=== PATIENT | female | born 1965 | race Caucasian/White ===

== ENCOUNTER 2023-04-28 14:15 | Inpatient (IN) | payer BC ==
[~2023-04-28] VITALS: Ht 162.6 cm; Wt 91.2 kg
[2023-04-28 14:17] VITALS: BP 133/72; PULSE 132; RESP 18; TEMP 98.2; O2SAT 99
[2023-04-28] MEDS: NACL 0.9% 1,000 ML IV ONE ×2 (15:47→18:05)
[2023-04-28] MEDS: METOPROLOL 5 MG/5 ML VIAL IV ONE (15:58)
[2023-04-28] MEDS: LORazepam 2 MG/ML VIAL IVP ONE (16:20)
[2023-04-28 16:24] LABS: BASOPHILS % (AUTO) 0.5 % (0.0-2.0); EOSINOPHILS % (AUTO) 0.5 % (0.0-4.0); HEMATOCRIT 40.7 % (36-48); HEMOGLOBIN 14.1 g/dL (12.0-16.0); LYMPHOCYTES # (AUTO) 1.1 K/uL (2.5-16.5); LYMPHOCYTES % (AUTO) 17.5 % (20.5-51.1); MEAN CORPUSCULAR HEMOGLOBIN 35 pg (27-31); MEAN CORPUSCULAR HGB CONC 35 g/dL (33-37); MEAN CORPUSCULAR VOLUME 99.6 fL (80-94); MONOCYTES # (AUTO) 0.5 K/uL (0.8-1.0); MONOCYTES % (AUTO) 7.9 % (1.7-9.3); NEUTROPHILS # (AUTO) 4.4 K/uL (1.8-7.7); NEUTROPHILS % (AUTO) 73.6 % (42.2-75.2); PLATELET COUNT (AUTO) 68 K/uL (140-450); RED BLOOD CELL COUNT(AUTO) 4.08 MIL/uL (4.20-5.40)
[2023-04-28 16:41] LABS: ANION GAP 11.9 (8-16); CALCIUM 7.3 mg/dL (8.5-10.1); CARBON DIOXIDE 32.2 mmol/L (21-32); CREATININE 0.7 mg/dL (0.6-1.3); POTASSIUM 4.1 mmol/L (3.5-5.1)
[2023-04-28 16:52] LABS: ALANINE AMINOTRANSFERASE 49 U/L (12-78); ALBUMIN 2.8 g/dL (3.4-5.0); ALKALINE PHOSPHATASE 209 U/L (50-136); ASPARTATE AMINOTRANSFERASE 139 U/L (15-37); BILIRUBIN,DIRECT 1.1 mg/dL (0.0-0.3); TOTAL BILIRUBIN 3.5 mg/dL (0.0-1.0); TOTAL PROTEIN, SERUM 6.3 g/dL (6.4-8.2)
[2023-04-28] MEDS ORDERED: METOPROLOL 5 MG/5 ML VIAL IVP ONE (17:20)
[2023-04-28] MEDS ORDERED: METOPROLOL 5 MG/5 ML VIAL ONE (17:22)
[2023-04-28] MEDS ORDERED: LORazepam 1 MG TAB PO ONE (17:25)
[2023-04-28 17:56] LABS: THYROID STIMULATING HORMONE 2.24 uIU/mL (0.34-3.74)
[2023-04-28] MEDS: METOPROLOL 25 MG TAB PO ONE ×2 (18:06→18:29)
[2023-04-28] MEDS: METOPROLOL 5 MG/5 ML VIAL IVP ONE (18:33)
[2023-04-28] MEDS: AMIODARONE 150 MG in DEXTROSE 5% 100 ML IV ONE (19:00)
[2023-04-28] MEDS ORDERED: AMIODARONE 150 MG/3 ML VIAL IV ONE ×2 (20:00→20:44)
[2023-04-28] MEDS: AMIODARONE 450 MG in DEXTROSE 5% 250 ML IV ONE (21:00)
[2023-04-28] MEDS: AMIODARONE 150 MG/3 ML VIAL IV ONE (21:29)
[2023-04-29] VITALS (10 sets, daily range): BP systolic 90–121; BP diastolic 50–67; PULSE 47–75; RESP 18–20; TEMP 97.8–98.1; O2SAT 93–99
[2023-04-29] MEDS ORDERED: HYDROcodone/APAP 5/325 MG 1 TAB TAB PO PRN ×2 (00:05→16:05)
[2023-04-29] MEDS: NACL 0.9% 1,000 ML IV SCH (00:05)
[2023-04-29] MEDS ORDERED: MORPHINE SULFATE 2 MG/ML SYR IVP PRN (00:05)
[2023-04-29] MEDS ORDERED: ACETAMINOPHEN 325 MG TAB PO PRN (00:05)
[2023-04-29] MEDS ORDERED: MAG SULF 2000 MG/WATER PREMIX 50 ML IV PRN (00:05)
[2023-04-29] MEDS ORDERED: MELATONIN 3 MG TAB PO PRN (00:05)
[2023-04-29] MEDS ORDERED: ONDANSETRON 4 MG/2 ML VIAL IVP PRN (00:05)
[2023-04-29] MEDS ORDERED: LORazepam 2 MG/ML VIAL IVP PRN (00:10)
[2023-04-29 00:46] LABS: FREE T4 (FREE THYROXINE) 0.93 ng/dL (0.76-1.46); THYROID STIMULATING HORMONE 2.1 uIU/mL (0.34-3.74)
[2023-04-29] MEDS ORDERED: ARIP5TAB8 PO (02:46)
[2023-04-29] MEDS ORDERED: METO25TE2 PO (02:46)
[2023-04-29] MEDS ORDERED: ESCI5TAB PO (02:47)
[2023-04-29] MEDS: THIAMINE 200 MG/2 ML VIAL IM SCH (09:44)
[2023-04-29 10:40] LABS: BASOPHILS % (AUTO) 0.4 % (0.0-2.0); EOSINOPHILS # (AUTO) 0.1 K/uL (0-0.4); EOSINOPHILS % (AUTO) 3.6 % (0.0-4.0); HEMATOCRIT 35.1 % (36-48); LYMPHOCYTES # (AUTO) 1.1 K/uL (2.5-16.5); LYMPHOCYTES % (AUTO) 27.5 % (20.5-51.1); MEAN CORPUSCULAR HEMOGLOBIN 35 pg (27-31); MEAN CORPUSCULAR HGB CONC 34 g/dL (33-37); MEAN CORPUSCULAR VOLUME 102.4 fL (80-94); MONOCYTES # (AUTO) 0.4 K/uL (0.8-1.0); MONOCYTES % (AUTO) 9.4 % (1.7-9.3); NEUTROPHILS # (AUTO) 2.4 K/uL (1.8-7.7); NEUTROPHILS % (AUTO) 59.1 % (42.2-75.2); RED BLOOD CELL COUNT(AUTO) 3.43 MIL/uL (4.20-5.40); RED CELL DISTRIBUTION WIDTH 22.8 % (11.6-13.7); WHITE BLOOD COUNT (AUTO) 4.1 K/uL (4.8-10.8)
[2023-04-29 10:55] LABS: ALBUMIN 2.3 g/dL (3.4-5.0); ANION GAP 11.6 (8-16); CALCIUM 6.9 mg/dL (8.5-10.1); CARBON DIOXIDE 29.6 mmol/L (21-32); CREATININE 0.7 mg/dL (0.6-1.3); POTASSIUM 3.2 mmol/L (3.5-5.1); TOTAL BILIRUBIN 3.2 mg/dL (0.0-1.0); TOTAL PROTEIN, SERUM 5.1 g/dL (6.4-8.2)
[2023-04-29 12:37] LABS: PLATELET COUNT (AUTO) 43 K/uL (140-450)
[2023-04-29] MEDS: AMIODARONE 200 MG TAB PO SCH (13:11)
[2023-04-29] MEDS: KCL 20 MEQ IN 100 mL PREMIX 200 ML IV PRN (16:16)
[2023-04-29] MEDS: LORazepam 2 MG/ML VIAL IVP PRN (17:18)
[2023-04-29] MEDS: LORazepam 1 MG TAB PO SCH (21:19)
[2023-04-30] VITALS: BP 118/77; PULSE 62; PULSE 67; RESP 18; TEMP 98.3; O2SAT 97
[2023-04-30 04:00] VITALS: BP 100/58; PULSE 59; PULSE 66; RESP 18; TEMP 97.7; O2SAT 97
[2023-04-30 06:53] LABS: BASOPHILS % (AUTO) 0.4 % (0.0-2.0); EOSINOPHILS # (AUTO) 0.1 K/uL (0-0.4); EOSINOPHILS % (AUTO) 3.7 % (0.0-4.0); HEMATOCRIT 32.5 % (36-48); HEMOGLOBIN 11.4 g/dL (12.0-16.0); LYMPHOCYTES # (AUTO) 1.1 K/uL (2.5-16.5); LYMPHOCYTES % (AUTO) 34.7 % (20.5-51.1); MEAN CORPUSCULAR HEMOGLOBIN 36 pg (27-31); MEAN CORPUSCULAR HGB CONC 35 g/dL (33-37); MEAN CORPUSCULAR VOLUME 101.4 fL (80-94); MONOCYTES # (AUTO) 0.3 K/uL (0.8-1.0); MONOCYTES % (AUTO) 9.2 % (1.7-9.3); NEUTROPHILS # (AUTO) 1.7 K/uL (1.8-7.7); WHITE BLOOD COUNT (AUTO) 3.3 K/uL (4.8-10.8)
[2023-04-30 07:06] LABS: PLATELET COUNT (AUTO) 41 K/uL (140-450)
[2023-04-30 07:31] LABS: ALBUMIN 2.2 g/dL (3.4-5.0); ANION GAP 11.8 (8-16); CALCIUM 7.3 mg/dL (8.5-10.1); CARBON DIOXIDE 28.1 mmol/L (21-32); CREATININE 0.6 mg/dL (0.6-1.3); MAGNESIUM 1.4 mg/dL (1.8-2.4); PHOSPHORUS 3.3 mg/dL (2.5-4.9); TOTAL BILIRUBIN 1.6 mg/dL (0.0-1.0); TOTAL PROTEIN, SERUM 5.2 g/dL (6.4-8.2)
[2023-04-30 07:33] LABS: POTASSIUM 2.9 mmol/L (3.5-5.1)
[2023-04-30 08:00] VITALS: PULSE 60
[2023-04-30] MEDS: ESCITALOPRAM 5 MG PO SCH (09:00)
[2023-04-30] MEDS ORDERED: ESCITALOPRAM 20 MG TAB PO SCH (09:00)
[2023-04-30] MEDS ORDERED: METOPROLOL SUCCINATE 50 MG TABER PO SCH (09:00)
[2023-04-30] MEDS: MULTIVITAMIN 1 TAB PO SCH (11:34)
[2023-04-30] MEDS: FOLIC ACID 1 MG TAB PO SCH (11:35)
[2023-04-30] MEDS: ARIPiprazole 10 MG TAB PO SCH (11:36)
[2023-04-30] MEDS: PANTOPRAZOLE 40 MG TABEC PO SCH (11:38)
[2023-04-30] MEDS: VANCOMYCIN HCL 25 MG/ML SOLN PO SCH (12:00)
[2023-04-30] MEDS ORDERED: VANCOMYCIN 500 MG VIAL PO SCH (12:00)
[2023-04-30] MEDS: POLYETHYLENE GLYCOL 17 GM/PKT PO PRN (12:44)
[2023-04-30 20:00] VITALS: PULSE 63
[2023-04-30 21:48] VITALS: PULSE 66
[2023-05-01 00:02] VITALS: PULSE 65
[2023-05-01 03:33] LABS: AMPHETAMINE, URINE NEGATIVE ng/ml (NEG <=1000); BARBITURATE, URINE NEGATIVE ng/ml (NEG <=200); BENZODIAZEPINE, URINE POSITIVE ng/mL (NEG <=200); CANNABINOID, URINE NEGATIVE ng/mL (NEG <=50); COCAINE, URINE NEGATIVE ng/mL (NEG <=300); OPIATE, URINE NEGATIVE ng/mL (NEG <=2000); PHENCYCLIDINE SCREEN,URINE NEGATIVE ng/mL (NEG <=25)
[2023-05-01 04:02] VITALS: PULSE 62
[2023-05-01 07:03] LABS: BASOPHILS % (AUTO) 0.4 % (0.0-2.0); EOSINOPHILS # (AUTO) 0.1 K/uL (0-0.4); EOSINOPHILS % (AUTO) 2.7 % (0.0-4.0); HEMATOCRIT 33.5 % (36-48); HEMOGLOBIN 11.8 g/dL (12.0-16.0); LYMPHOCYTES # (AUTO) 1.4 K/uL (2.5-16.5); LYMPHOCYTES % (AUTO) 31.6 % (20.5-51.1); MEAN CORPUSCULAR HEMOGLOBIN 36 pg (27-31); MEAN CORPUSCULAR HGB CONC 35 g/dL (33-37); MEAN CORPUSCULAR VOLUME 101.3 fL (80-94); MONOCYTES # (AUTO) 0.4 K/uL (0.8-1.0); MONOCYTES % (AUTO) 8.9 % (1.7-9.3); NEUTROPHILS # (AUTO) 2.6 K/uL (1.8-7.7); NEUTROPHILS % (AUTO) 56.4 % (42.2-75.2); PLATELET COUNT (AUTO) 54 K/uL (140-450); RED BLOOD CELL COUNT(AUTO) 3.31 MIL/uL (4.20-5.40); RED CELL DISTRIBUTION WIDTH 23.8 % (11.6-13.7); WHITE BLOOD COUNT (AUTO) 4.6 K/uL (4.8-10.8)
[2023-05-01 07:53] LABS: ALBUMIN 2.4 g/dL (3.4-5.0); ANION GAP 8.7 (8-16); CALCIUM 7.5 mg/dL (8.5-10.1); CARBON DIOXIDE 34.8 mmol/L (21-32); CREATININE 0.7 mg/dL (0.6-1.3); MAGNESIUM 1.3 mg/dL (1.8-2.4); PHOSPHORUS 3.4 mg/dL (2.5-4.9); POTASSIUM 3.5 mmol/L (3.5-5.1); TOTAL BILIRUBIN 1.5 mg/dL (0.0-1.0); TOTAL PROTEIN, SERUM 5.1 g/dL (6.4-8.2)
[2023-05-01 08:00] VITALS: PULSE 59
[2023-05-01] MEDS ORDERED: VANC25SO PO (12:18)
[2023-05-01] MEDS ORDERED: FOLI1TAB90 PO (12:18)
[2023-05-01] MEDS ORDERED: AMIO200T10 PO (12:18)
[2023-05-01] MEDS ORDERED: LORA-476 PO (12:18)
[2023-05-01 16:04] VITALS: BP 100/58; PULSE 59; RESP 18; TEMP 97.7
== END 2023-05-01 17:30 | disposition home or self-care (01) | DRG 872 ==
LOC: MED 14:15 → MTU 19:51 → MIC 04-29 06:17 → MTU 04-29 19:33
PROVIDERS: ADMIT Family Medicine; ATTEND Family Medicine
DX: A41.9 Sepsis, unspecified organism (principal); F10.139 Alcohol abuse with withdrawal, unspecified; I48.0 Paroxysmal atrial fibrillation; Z20.822 Contact with and (suspected) exposure to COVID-19; D69.6 Thrombocytopenia, unspecified; K74.60 Unspecified cirrhosis of liver; Z79.899 Other long term (current) drug therapy
CPT/HCPCS: 36415; 71045; 76705; 80048; 80053; 80076; 80305; 83735; 84100; 84439; 84443; 84484; 85025; 87040; 87070; 87081; 93005; 96361; 96374; 96375; 99285; J0282; J2060; J3411; J3480; J3490; J7060; Q0092